=== PATIENT | male | born 1945 | race American Indian/Alaskan Native ===

== ENCOUNTER 2018-04-29 09:42 | Outpatient (CLI) | payer MEDICARE ==
--- NOTE | 2018-04-29 12:43 | Cat Scan Report ---
FINAL REPORT EXAM: CT ABDOMEN PELVIS WO CON HISTORY: MALIGNANT NEOPLASM OF PROSTATE TECHNIQUE: Noncontrast CT of the abdomen and pelvis performed. No IV contrast was administered. Oral contrast was administered. Axial images and coronal and sagittal reformatted images were obtained. PRIORS: None. FINDINGS: Within the limitations of a non-enhanced study, the visualized liver, spleen, pancreas, adrenal glands and kidneys demonstrate no significant abnormalities. There is no abdominal aortic aneurysm. There are aortoiliac atherosclerotic calcifications. There is no evidence of intestinal obstruction. The appendix is normal. There is no abnormal lymphadenopathy seen. There are no abnormal fluid collections seen. There is no free intraperitoneal air. There is nonspecific bladder wall thickening. This may just reflect lack of bladder distension. There are degenerative changes at L4-5 causing moderate spinal stenosis. There also marked osteoarthritic changes involving the hips. IMPRESSION: There is nonspecific bladder wall thickening. This could just reflect lack of bladder distention. Marked osteoarthritis involving the hips. Moderate L4-5 degenerative disc disease with spinal stenosis. There are otherwise no findings to indicate metastatic disease.
--- NOTE | 2018-04-29 15:17 | Nuclear Medicine Report ---
BONE SCAN: History: Malignant neoplasm of prostate. Comparison: No previous bone scan. Correlation is made with CT abdomen pelvis without contrast performed the same day. After injection of isotope, gamma camera imaging of the bony system was done. There is normal renal and soft tissue activity. Contamination on the perineum is noted. Moderate degenerative uptake is identified in both shoulders, sternoclavicular joints, elbows, hips and right knee. There is focal uptake in the left maxilla consistent with periodontal disease. No focal uptake consistent with metastatic disease or trauma is identified. IMPRESSION: Negative bone scan for metastatic disease. Degenerative uptake as described.
== END 2018-04-29 09:43 | disposition home or self-care (01) ==
LOC: NM 09:42
PROVIDERS: ATTEND Urology
DX: C61 Malignant neoplasm of prostate (principal); M51.36 Other intervertebral disc degeneration, lumbar region; M48.061 Spinal stenosis, lumbar region without neurogenic claudication; M16.0 Bilateral primary osteoarthritis of hip
CPT/HCPCS: 74176; 78306; A9503